=== PATIENT | female | born 1970 | race Caucasian/White ===

== ENCOUNTER 2018-08-06 18:28 | Emergency (ER) | payer OTHER ==
[~2018-08-06] VITALS: Ht 154.9 cm; Wt 91.2 kg
[~2018-08-06 18:28] MED LIST: BENA20TA PO; CHOL20001 PO; FOLI1TAB19 PO; INSULIN SQVAC; LISI-420 PO; METF1000 PO; SIMV10TA1 PO
[2018-08-06 18:38] VITALS: BP 186/112
--- NOTE | 2018-08-06 18:54 | NUR ---
PT. AMBULATED TO BED 12 STEADY GAIT.
--- NOTE | 2018-08-06 18:59 | NUR ---
48 YO F BIB DAUGHTER W/ C/O HEADACHE/NECK PAIN, DIAPHORETIC, N/V X 3 DAYS. PT APPEARS VERY WEAK/LETHARGIC, BP ELEVATED 186/112. DENIES INJURY/TRAUMA. AAOX4, GCS 15, CMS INTACT. RR EVEN AND UNLABORED. LUNGS BL CLEAR. PERRLA INTACT, NEURO APPRORPIATE. SPEAKING IN FULL, COMPLETE SENTENCES. SKIN IS INTACT, PINK/WARM/DRY; AAOX4, PERRL, WITH EVEN AND STEADY GAIT; LUNGS CLEAR BL, BREATHING UNLABORED; HR EVEN AND REGULAR, BL PERIPHERAL PULSES PRESENT; BS ACTIVE X4, NO TENDERNESS TO PALPATION, NO HEPATOSPLENOMEGALLY PALPATED, RESONANT TO PERCUSSION; PT DENIES ANY FEVER, CP, SOB, OR COUGH AT THIS TIME; PT STATES 10/10 PAIN AT THIS TIME; VSS; PATIENT POSITIONED FOR COMFORT; HOB ELEVATED; BEDRAILS UP X2; BED DOWN.
--- NOTE | 2018-08-06 19:00 | NUR ---
HX DM, HTN RX METFORMIN, LISINOPRIL AND OTHERS SHE CANNOT REMEMBER.
--- NOTE | 2018-08-06 19:20 | NUR ---
Pt report given to TODD TIWARI . Transfer of care at this time.
--- NOTE | 2018-08-06 19:20 | NUR ---
PT LAYING IN BED, TEARFULL, B/P ELEVATED PT HAS HX OF HTN STATES SHE HAS BEEN COMPLIANT W/ HER MEDS AND SHE TOOK IBUPROFEN AROUND 6PM W/ NO PAIN RELIEF. PT DENIES MIGRAINE PEREZ HX.
--- NOTE | 2018-08-06 21:08 | NUR ---
PT C/O PAIN, TEARFUL, PENDING Diaz SEN MADE AWARE OF PT STATUS.
--- NOTE | 2018-08-06 21:12 | NUR ---
PT AMBULATED TO BATHROOM, EVEN STEADY GAIT.
[2018-08-06] MEDS ORDERED: NACL 0.9% 1,000 ML IV SCH (21:33)
[2018-08-06] MEDS ORDERED: KETOROLAC 30 MG/ML VIAL IVP ONE (21:35)
[2018-08-06] MEDS ORDERED: METOCLOPRAMIDE 10 MG/2 ML INJ VIAL IVP ONE (21:35)
[2018-08-06] MEDS ORDERED: METHOCARBAMOL 500 MG TAB PO ONE (21:35)
[2018-08-06 21:59] LABS: BASOPHILS % (AUTO) 0.5 % (0.0-2.0); EOSINOPHILS % (AUTO) 0.1 % (0.0-4.0); HEMATOCRIT 35.9 % (36-48); HEMOGLOBIN 11.3 g/dL (12.0-16.0); LYMPHOCYTES # (AUTO) 1.8 K/uL (2.5-16.5); LYMPHOCYTES % (AUTO) 22.5 % (20.5-51.1); MEAN CORPUSCULAR HEMOGLOBIN 24 pg (27-31); MEAN CORPUSCULAR HGB CONC 32 g/dL (33-37); MEAN CORPUSCULAR VOLUME 74.4 fL (80-94); MONOCYTES # (AUTO) 0.3 K/uL (0.8-1.0); MONOCYTES % (AUTO) 3.6 % (1.7-9.3); NEUTROPHILS # (AUTO) 5.9 K/uL (1.8-7.7); NEUTROPHILS % (AUTO) 73.3 % (42.2-75.2); PLATELET COUNT (AUTO) 307 K/uL (140-450); RED BLOOD CELL COUNT(AUTO) 4.82 MIL/uL (4.20-5.40); RED CELL DISTRIBUTION WIDTH 15.4 % (11.6-13.7)
[2018-08-06 22:08] LABS: ANION GAP 11.6 (8-16); CREATININE 0.7 mg/dL (0.6-1.3); POTASSIUM 3.6 mmol/L (3.5-5.1)
[2018-08-06 22:14] LABS: ALBUMIN 3.8 g/dL (3.4-5.0)
[2018-08-06 22:14] LABS: APPEARANCE,URINE CLEAR (CLEAR); BILIRUBIN,URINE NEGATIVE (NEGATIVE); BLOOD, URINE NEGATIVE (NEGATIVE); COLOR,URINE STRAW (YELLOW); LEUKOCYTE ESTERASE ,URINE NEGATIVE (NEGATIVE); NITRITE, URINE NEGATIVE (NEGATIVE); UGLUCOSE 3+ (NEGATIVE)
[2018-08-06 22:15] LABS: PROTHROMBIN TIME 9.8 secs (10.8-13.4)
[2018-08-07] MEDS ORDERED: HYDROcodone/APAP 5/325 MG 1 TAB TAB PO ONE (00:35)
[2018-08-07 01:27] VITALS: BP 135/91
--- NOTE | 2018-08-07 01:29 | NUR ---
Patient discharged with v/s stable. Written and verbal after care instructions given and explained. Patient alert, oriented and verbalized understanding of instructions. Ambulatory with steady gait. All questions addressed prior to discharge. ID band removed. Patient advised to follow up with PMD. Rx of ROBAXIN, REGLAN, IBUPROFEN, NORCO given. Patient educated on indication of medication including possible reaction and side effects. Opportunity to ask questions provided and answered.
== END 2018-08-07 01:29 | disposition home or self-care (01) ==
LOC: MED 18:28
DX: G44.209 Tension-type headache, unspecified, not intractable (principal); R11.2 Nausea with vomiting, unspecified; M62.838 Other muscle spasm; E11.9 Type 2 diabetes mellitus without complications; I10 Essential (primary) hypertension; Z88.5 Allergy status to narcotic agent; Z79.4 Long term (current) use of insulin; Z79.899 Other long term (current) drug therapy
CPT/HCPCS: 36415; 70450; 80053; 81003; 83690; 83880; 84484; 84703; 85025; 85610; 85730; 96361; 96374; 96375; 99285; J1885; J2765; J7030

== ENCOUNTER 2018-11-17 13:31 | Emergency (ER) | payer OTHER ==
[~2018-11-17] VITALS: Ht 154.9 cm; Wt 84.0 kg
[2018-11-17 13:44] VITALS: BP 158/84
--- NOTE | 2018-11-17 14:15 | NUR ---
PATIENT AMBULATED TO ER BED 12.
--- NOTE | 2018-11-17 14:20 | NUR ---
PT IS A 48 Y/O FEMALE WHO PRESENTS TO THE ED C/O ABSCESS. PT STATES THAT IT BURST X5 DAYS AGO AND PAIN IS NOW WORSE. PT REPORTS 10/10 ACHING R BUTTOCK PAIN THAT DOES NOT RADIATE. PT DENIES CP, SOB, N/V/D. PT AWAKE AND ALERT, RR EVEN/UNLABORED. PT REPOSITIONED FOR COMFORT, BED IN LOWEST POSITION. ER MD DR. PIERRE NOTIFIED. WILL CONTINUE TO MONITOR. HX--DM, HTN, RX--Isosorbide, METFORMIN, INSULIN
[2018-11-17] MEDS ORDERED: BACITRACIN OINT 500 UNITS/GM PKT TP ONE (14:40)
[2018-11-17 15:00] VITALS: BP 154/82
--- NOTE | 2018-11-17 15:00 | NUR ---
Patient discharged with v/s stable. Written and verbal after care instructions given and explained. Patient alert, oriented and verbalized understanding of instructions. Ambulatory with steady gait. All questions addressed prior to discharge. ID band removed. Patient advised to follow up with PMD. Rx of BACTRIM 800MG-160MG, TRAMADOL 50MG AND MOTRIN 800MG given. Patient educated on indication of medication including possible reaction and side effects. Opportunity to ask questions provided and answered.
== END 2018-11-17 15:00 | disposition home or self-care (01) ==
LOC: MED 13:31
DX: L02.31 Cutaneous abscess of buttock (principal); E11.9 Type 2 diabetes mellitus without complications; I10 Essential (primary) hypertension; Z79.84 Long term (current) use of oral hypoglycemic drugs; Z79.899 Other long term (current) drug therapy; Z88.5 Allergy status to narcotic agent
CPT/HCPCS: 99283

== ENCOUNTER 2019-06-12 16:34 | Emergency (ER) | payer OTHER ==
[~2019-06-12] VITALS: Ht 157.5 cm; Wt 83.5 kg
[2019-06-12 16:37] VITALS: BP 181/77
--- NOTE | 2019-06-12 16:55 | NUR ---
WAIT IN LOBBY
--- NOTE | 2019-06-12 19:16 | NUR ---
49 Y/O FEMLAE C/O HEAD 05/11 ACUTE PAIN LOVATED IN THE MID UPPER BACK PAIN ,BILATERAL FEET & ANKLES PAIN & SWOLLEN S/P FALL 2 DAYS AGO. NON-PITTING ANKLE EDEMA PITTINE EDEMA NOTED ON THE ANKLES. A/OX4. PATIENT FOLLOWS COMMANDS. PERRL +3. HAND CONTINUITY READER ARE STRONG. DENIES VOMITING AND DIARRHEA BUT STATES THAT SHE HAS NAUSEA. ER MD MADE AWARE OF STATUS. SIDERAILSX 2. MED HX: DM,HTN ALLERGIES:MORPHINE
--- NOTE | 2019-06-12 20:30 | NUR ---
PT TAKEN TO XRAY
--- NOTE | 2019-06-12 21:07 | NUR ---
X-Ray at bedside.
--- NOTE | 2019-06-12 21:21 | NUR ---
REPORT GIVEN TO PM RN. PT STABLE.
[2019-06-12] MEDS: KETOROLAC 60 MG/2 ML VIAL IM ONE (21:23)
--- NOTE | 2019-06-12 21:33 | NUR ---
Dr. Holly examining patient.
[2019-06-12] MEDS: traMADol 50 MG TAB PO ONE (21:50)
--- NOTE | 2019-06-12 21:54 | NUR ---
PLACED BIANCA WRAP ON PATIENT'S LEFT FOOT. SIZED CRUTCHES TO PATIENT
[2019-06-12 22:03] VITALS: BP 135/86
--- NOTE | 2019-06-12 22:03 | NUR ---
Patient discharged with v/s stable. Written and verbal after care instructions given and explained. Patient alert, oriented and verbalized understanding of instructions. Ambulatory with steady gait. All questions addressed prior to discharge. ID band removed. Patient advised to follow up with PMD. Rx of TRAMADOL HYDROCHLORIDE 50 MG; MOTRIN 800MG given. Patient educated on indication of medication including possible reaction and side effects. Opportunity to ask questions provided and answered.
== END 2019-06-12 22:03 | disposition home or self-care (01) ==
LOC: MED 16:34
DX: S90.32XA Contusion of left foot, initial encounter (principal); S90.31XA Contusion of right foot, initial encounter; M54.6 Pain in thoracic spine; E11.9 Type 2 diabetes mellitus without complications; I10 Essential (primary) hypertension; Z88.5 Allergy status to narcotic agent; Z79.4 Long term (current) use of insulin; Z79.899 Other long term (current) drug therapy; W19.XXXA Unspecified fall, initial encounter; Y93.89 Activity, other specified; Y92.89 Other specified places as the place of occurrence of the external cause; Y99.8 Other external cause status
CPT/HCPCS: 71045; 72080; 73630; 81002; 81025; 82948; 96372; 99284; J1885; Q0092